=== PATIENT | female | born 1995 | race Caucasian/White ===

== ENCOUNTER 2017-02-21 18:57 | Emergency (ER) | payer OTHER ==
[~2017-02-21] VITALS: Ht 162.6 cm; Wt 56.0 kg
[2017-02-21 19:01] VITALS: Ht 162.6 cm; Wt 56.0 kg
[2017-02-21] MEDS ORDERED: KETOROLAC 30 MG INJ IM STA (19:18)
--- NOTE | 2017-02-21 19:21 | ERD ---
ER Documentation Chief Complaint Date/Time DATE: 02/21/17 TIME: 19:20 Chief Complaint c/o pelvic pain x 3 hrs. States has hx of cysts. HPI 21-year-old female history of ovarian cyst presents to the emergency department complaining of crampy, 10 out of 10 pelvic pain for the past 3 hours. She denies any fevers, dysuria, nausea vomiting diarrhea. She states her last menstrual period was 2 weeks ago. Patient states that she IUD ROS All systems reviewed and are negative except as per history of present illness. Medications Home Meds Active Scripts Ibuprofen* (Ibuprofen*) 400 Mg Tablet, 400 MG PO Q6H Y for PAIN, #30 TAB Prov:RANI PEARSON PA-C 02/21/17 Physical Exam Vitals Vital Signs Date Time Temp Pulse Resp B/P Pulse Ox O2 Delivery O2 Flow Rate FiO2 02/21/17 19:01 98.9 66 18 117/67 98 Physical Exam GENERAL: well-developed/well-nourished, in no apparent distress, non-toxic appearing HENT: NC/AT, moist mucous membranes EYES: Conjunctiva normal NECK: Supple, no lymphadenopathy PULM: CTA bilaterally, no rales, rhonchi, or wheezing heard CV: Normal S1S2, RRR, good capillary refill GI: Soft, non-distended, tender to palpation pelvic region Normal bowel sounds, no masses or organomegaly felt on exam No gross peritonitis, no bruits Negative Rovsing, negative Jones, negative McBurney's point, Negative CVAT BACK: No masses EXT: No clubbing, cyanosis, or edema NEURO: Alert and Orientated SKIN: Intact, normal turgor PSYCH: Normal mood and mentation Results 24 hrs Laboratory Tests Test 02/21/17 19:33 Bedside Urine pH (LAB) 7.0 Bedside Urine Protein (LAB) Negative Bedside Urine Glucose (UA) Negative Bedside Urine Ketones (LAB) Negative Bedside Urine Blood Negative Bedside Urine Nitrite (LAB) Negative Bedside Urine Leukocyte Esterase (L Negative Current Medications Medications (Trade) Dose Ordered Sig/Sameer Route PRN Reason Start Time Stop Time Status Last Admin Dose Admin Ketorolac Tromethamine (Toradol) 30 mg ONCE STAT IM 02/21/17 19:18 02/21/17 19:20 DC 02/21/17 19:25 Procedures/MDM 21-year-old female presenting to the emergency department complaining of crampy pelvic pain. No evidence of UTI, ruptured ovarian cyst, torsion. No evidence acute abdomen. Patient stable to be discharged home to follow-up with an OB/ ENGINEER/CONDUCTOR. Is given ibuprofen. She stable and well-appearing Departure Diagnosis: Primary Impression: Acute pain in female pelvis Condition: Stable RANI PEARSON PA-C Feb 21, 2017 19:21
[2017-02-21 19:25] LABS: URINE BLOOD (Dip) POC Negative (NEGATIVE)
--- NOTE | 2017-02-21 20:38 | RADRPT ---
PROCEDURE: US Pelvis. CLINICAL INDICATION: Pelvic pain LAST MENSTRUAL PERIOD: TECHNIQUE: Multiple sonographic images of the pelvis were obtained utilizing a transabdominal and endovaginal technique. COMPARISON: None FINDINGS: The uterus is visualized and measures 7.5 x 3.6 x 3.6 cm. Intrauterine device in expected location. The endometrial echo complex is normal and measures 3 mm. Small amount of pelvic free fluid. The right ovary has a normal echotexture and measures 2.7 x 2.1 x 2.7 cm. The left ovary was not vi sualized.. Right ovarian simple cyst measuring 2.1 cm. No adnexal masses are noted. Normal right ova tra blood flow. IMPRESSION: Normal appearance of the uterus with intrauterine device. Normal appearance the right ovary with a physiologic simple cyst. Normal right ovarian blood flow. L eft ovary not visualized. Small amount of pelvic free fluid which may be physiologic at this age. RPTAT:AAJJ Physician Nav Date Time Electronically viewed and signed by Physician Nav on 02/21/2017 20:38 /
[2017-02-21] MEDS ORDERED: IBUP400T22 PO (20:41)
== END 2017-02-21 20:51 | disposition home or self-care (01) ==
LOC: FTE 18:57
DX: R10.2 Pelvic and perineal pain (principal)
CPT/HCPCS: 76830; 76856; 81003; 96372; 99285; J1885